=== PATIENT | female | born 1990 | race Two or more races ===

== ENCOUNTER 2017-03-22 17:05 | Emergency (ER) | payer OTHER ==
[~2017-03-22] VITALS: Ht 165.1 cm; Wt 112.4 kg
[2017-03-22 17:08] VITALS: BP 124/86
== END 2017-03-22 18:55 | disposition home or self-care (01) ==
LOC: ED 18:30
DX: J20.8 Acute bronchitis due to other specified organisms (principal); J02.8 Acute pharyngitis due to other specified organisms
CPT/HCPCS: 71020; 99284